=== PATIENT | female | born 1945 ===

== ENCOUNTER → 2016-11-16 10:34 | Outpatient (CLI) | payer MEDICARE, BC ==
[2016-06-15 14:25] VITALS: BMI 20.5
[~2016-11-16 10:34] MED LIST: FOLIC ACID1 MG PO; HYDROCODON-ACE1 EAC7 PO; MILK OF MAGNESI30 ML PO; MINERAL OIL25 ML PO; NEURONTIN600 MG PO; OMEPRAZOLE40 MG PO; PLAQUENIL200 MG PO; SYNTHROID50 MCG PO; TREXALL10 MG PO; VOLTAREN75 MG PO; ZOFRAN4 MG PO
[2016-11-16 11:20] LABS: BASOPHILS 0.9 % (0.0-2.0); EOSINOPHILS 1.5 % (0-7); HEMATOCRIT 37.6 % (36.0-48.0); IMMATURE GRANULOCYTES 0.7 % (0-5); LYMPHOCYTES 29.3 % (15-50); MCH 27.6 pg (26.0-34.0); MCHC 31.9 g/dL (31.0-37.0); MCV 86.6 fL (80.0-100.0); MEAN PLATELET VOLUME 10.3 fL (7.4-10.4); MONOCYTES 6.7 % (2-11); NEUTROPHILS 60.9 % (40-80); PLATELET COUNT 200 10x3/uL (130-400); RBC 4.34 10x6/uL (4.00-5.40); RDW 14.5 % (11.5-14.5); WBC 5.4 10x3/uL (4.8-10.8)
== END | disposition home or self-care (01) ==
LOC: D.NM 11-10 12:30 → D.LAB 10:34 → D.NM 11:30
PROVIDERS: Internal Medicine Gastroenterology
DX: K92.2 Gastrointestinal hemorrhage, unspecified (principal); R10.9 Unspecified abdominal pain; R11.0 Nausea

== ENCOUNTER → 2017-06-19 13:15 | Outpatient (CLI) | payer MEDICARE, BC ==
[2016-06-15 14:25] VITALS: BMI 20.5
== END | disposition home or self-care (01) ==
LOC: D.MRI 13:15
DX: R51 Headache (principal)

== ENCOUNTER → 2017-08-28 13:21 | Outpatient (CLI) | payer MEDICARE, BC ==
[2016-06-15 14:25] VITALS: BMI 20.5
== END | disposition home or self-care (01) ==
LOC: D.RAD 13:21
DX: R05 Cough (principal)